=== PATIENT | female | born 1945 | race Caucasian/White ===

== ENCOUNTER 2016-08-06 09:50 | Day surgery (SDC) | payer MEDICARE ==
[2016-08-06] MEDS ORDERED: TROPICAMIDE 1% 15ML BTL OP ONE (13:51)
[2016-08-06] MEDS ORDERED: NEOMYCIN/POLY./DEXAM OPTH OINT OPTH ONE (13:51)
[2016-08-06] MEDS ORDERED: EPINEPHRINE 1 MG/ML AMPUL SQ ONE (13:51)
[2016-08-06] MEDS ORDERED: TOBRAMYCIN 0.3% OPTH DROP 5 ML BTL OPTH ONE (13:51)
[2016-08-06] MEDS ORDERED: DICLOFENAC SODIUM 2.5 ML DROPS OPTH ONE (13:51)
[2016-08-06] MEDS ORDERED: PREDNISOLONE ACETATE 1% OPTH 10ML BOTTLE OPTH ONE (13:51)
[2016-08-06] MEDS ORDERED: LIDOCAINE 2% MDV (20MG/ML) 20ML VIAL IV ONE ×2 (13:51→14:00)
[2016-08-06] MEDS ORDERED: PHENYLEPHRINE HCL 2.5% OPTH 2ML BTL OP ONE (13:51)
[2016-08-06] MEDS ORDERED: TETRACAINE HCL 0.5% 15 ML OPTH BTL OPTH ONE (13:51)
[2016-08-06] MEDS ORDERED: PROPOFOL 10 MG/ML VIAL IV ONE (14:00)
[2016-08-06] MEDS ORDERED: ALFENTANIL HCL 500 MCG/1ML, 2ML AMP IV ONE (14:00)
--- NOTE | 2016-08-10 15:12 | OP NOTE CHAMES ---
DATE OF PROCEDURE: 08/06/16 PREOPERATIVE DIAGNOSIS: Nuclear sclerotic cataract, left eye. POSTOPERATIVE DIAGNOSIS: Nuclear sclerotic cataract, left eye. OPERATION: Phacoemulsification of cataractous lens with implantation of intraocular lens. LENS IMPLANT USED: Marie Model PCB00 + 25.0 diopters. COMPLICATIONS: None. PROCEDURE IN DETAIL: Following a retrobulbar and facial block, the patient was prepped and draped in the usual fashion for eye surgery. A lid speculum was placed in the left eye after which a 2.4 mm tunnel wound was placed at the temporal limbus and dissected into clear cornea. A paracentesis was placed at 2 oclock hours to the left and right of the initial incision and the chamber deepened with Viscoelastic. The keratome was then used to enter the anterior chamber after which the continuous circular capsulorrhexis was accomplished without difficulty using a bent needle and a Utrata forceps. Hydrodissection and hydrodelineation of the lens was performed after which the nucleus of the lens was removed using the Phaco handpiece in the [id number] technique. The residual cortical material was irrigated and aspirated from the eye after which the bag and chamber were re-examined. The bag was re-inflated with Viscoelastic and the intraocular lens injected into the capsular bag where it centered well. The Viscoelastic was then copiously irrigated and aspirated from the eye after which the temporal tunnel wound and paracentesis were hydrated and the wounds were examined. They were noted to be watertight. The lid speculum was removed from the eye and the eye patched and shielded. The patient was transferred to the recovery room in satisfactory condition and given an appointment to be reexamined in the clinic later today or as directed by Dr. Andujar. Binu Andujar M.D. Date & Time JOB NUMBER: [id number] MTDD
== END 2016-08-06 12:30 | disposition home or self-care (01) ==
LOC: SUR 09:50
PROVIDERS: ATTEND Ophthalmology
DX: H25.12 Age-related nuclear cataract, left eye (principal); I10 Essential (primary) hypertension
CPT/HCPCS: J0171

== ENCOUNTER → 2016-09-03 | Day surgery (SDC) | payer MEDICARE ==
[~2016-09-03] MED LIST: *PACU ONLY* KETAMINE HCL 10 MG/ML (20ML) VIAL IV ONE; ALFENTANIL HCL 500 MCG/1ML, 2ML AMP IV ONE; EPINEPHRINE 1 MG/ML AMPUL SQ ONE; LIDOCAINE 2% MDV (20MG/ML) 20ML VIAL IV ONE; ONDANSETRON HCL IV 4 MG/2 ML VIAL IVP ONE; PROPOFOL 10 MG/ML VIAL IV ONE; TETRACAINE HCL 0.5% 15 ML OPTH BTL OPTH ONE
--- NOTE | 2016-09-03 15:03 | OP NOTE CHAMES ---
DATE OF PROCEDURE: 09/03/16 PREOPERATIVE DIAGNOSIS: Nuclear sclerotic and cortical cataract, right eye. POSTOPERATIVE DIAGNOSIS: Nuclear sclerotic and cortical cataract, right eye. OPERATION: Phacoemulsification of cataractous lens with implantation of intraocular lens. LENS IMPLANT USED: Marie Model PCB00 + 28.0 diopters. COMPLICATIONS: None. PROCEDURE IN DETAIL: Following a retrobulbar and facial block, the patient was prepped and draped in the usual fashion for eye surgery. A lid speculum was placed in the right eye after which a 2.4 mm tunnel wound was placed at the temporal limbus and dissected into clear cornea. A paracentesis was placed at 2 oclock hours to the left and right of the initial incision and the chamber deepened with Viscoelastic. The keratome was then used to enter the anterior chamber after which the continuous circular capsulorrhexis was accomplished without difficulty using a bent needle and a Utrata forceps. Hydrodissection and hydrodelineation of the lens was performed after which the nucleus of the lens was removed using the Phaco handpiece in the [id number] technique. The residual cortical material was irrigated and aspirated from the eye after which the bag and chamber were re-examined. The bag was re-inflated with Viscoelastic and the intraocular lens injected into the capsular bag where it centered well. The Viscoelastic was then copiously irrigated and aspirated from the eye after which the temporal tunnel wound and paracentesis were hydrated and the wounds were examined. They were noted to be watertight. The lid speculum was removed from the eye and the eye patched and shielded. The patient was transferred to the recovery room in satisfactory condition and given an appointment to be reexamined in the clinic later today or as directed by Dr. Andujar. Binu Andujar M.D. Date & Time JOB NUMBER: [id number] MTDD
== END | disposition home or self-care (01) ==
LOC: SUR 09:14
PROVIDERS: ATTEND Ophthalmology
DX: H25.11 Age-related nuclear cataract, right eye (principal); F17.200 Nicotine dependence, unspecified, uncomplicated; I10 Essential (primary) hypertension; H25.011 Cortical age-related cataract, right eye
CPT/HCPCS: 66984; 00142; J2405; J0171